=== PATIENT | female | born 2000 | race Caucasian/White ===

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

== ENCOUNTER 2020-10-18 19:22 | Day surgery (SDCO) | payer OTHER ==
[~2020-10-18 19:22] MED LIST: AMOXICILLIN500 MG PO; MACROBID100 MG PO; NAPROXEN500 MG PO; pre natal vit
== END 2020-10-19 00:40 | disposition home or self-care (01) ==
LOC: FOB 19:22
PROVIDERS: ADMIT Obstetrics & Gynecology
DX: O47.1 False labor at or after 37 completed weeks of gestation (principal); O99.013 Anemia complicating pregnancy, third trimester; D64.9 Anemia, unspecified; Z3A.37 37 weeks gestation of pregnancy; Z79.899 Other long term (current) drug therapy
CPT/HCPCS: 80305; 81001; G0378; J7120

== ENCOUNTER 2020-10-30 19:59 | Inpatient (IN) | payer OTHER ==
[2020-10-30 21:04] LABS: HCT 34.8 % (37.0-47.0); HGB 11.3 g/dl (12.5-16.0); MCH 27.4 pg (25.0-31.0); MCHC 32.5 g/dL (32.0-36.0); MCV 84.5 fL (78.0-100.0); MPV 10.6 fL (6.0-9.5); RBC 4.12 M/uL (4.20-5.40); RDW 21.5 % (11.5-14.0); WBC 8.2 K/uL (4.0-10.5)
[2020-10-30 21:14] LABS: BILIRUBIN NEGATIVE (NEGATIVE); BLOOD NEGATIVE Ery/uL (NEGATIVE); CLARITY CLEAR (CLEAR); COLOR YELLOW (YELLOW); GLUCOSE (U) NORMAL (NORMAL); LEUKOCYTES 3+ Leu/uL (NEGATIVE); NITRITE NEGATIVE (NEGATIVE); PROTEIN NEGATIVE (NEGATIVE); SPECIFIC GRAVITY 1.015 (1.001-1.030); UROBILINOGEN 0.2 mg/dL (0.2-1.0)
[2020-10-30 21:25] LABS: BACTERIA 2+; YEAST PRESENT
[2020-10-30 21:30] LABS: AMPHETAMINES NEGATIVE (NEGATIVE); BARBITURATES NEGATIVE (NEGATIVE); ECSTASY (MDMA) NEGATIVE (NEGATIVE); MARIJUANA (THC) NEGATIVE (NEGATIVE); METHADONE NEGATIVE (NEGATIVE); OPIATES NEGATIVE (NEGATIVE)
[2020-10-30 21:31] LABS: OXYCODONE NEGATIVE (NEGATIVE)
[2020-11-01 05:54] LABS: HCT 33.7 % (37.0-47.0); HGB 10.8 g/dl (12.5-16.0); MCH 27.6 pg (25.0-31.0); MPV 10.3 fL (6.0-9.5); RBC 3.92 M/uL (4.20-5.40); RDW 21.4 % (11.5-14.0); WBC 10.2 K/uL (4.0-10.5)
== END 2020-11-02 12:30 | disposition home or self-care (01) | DRG 806 ==
LOC: FOD 19:59 → FOB 20:04 → FOD 20:51 → FOB 20:52
PROVIDERS: ADMIT Obstetrics & Gynecology
PROC: 10E0XZZ Delivery of Products of Conception, External Approach (ICD-10-PCS; principal; 2020-10-31)
PROC: 3E0P7VZ Introduction of Hormone into Female Reproductive, Via Natural or Artificial Opening (ICD-10-PCS; 2020-10-31)
DX: O99.02 Anemia complicating childbirth (principal); O98.22 Gonorrhea complicating childbirth; Z37.0 Single live birth; D62 Acute posthemorrhagic anemia; O26.891 Other specified pregnancy related conditions, first trimester; O69.81X0 Labor and delivery complicated by cord around neck, without compression, not applicable or unspecified; R12 Heartburn; Z20.822 Contact with and (suspected) exposure to COVID-19; Z3A.39 39 weeks gestation of pregnancy
CPT/HCPCS: 36415; 80305; 81001; J2540; J7120; U0002

== ENCOUNTER 2021-03-30 11:15 | Emergency (ER) | payer OTHER ==
[2021-03-30 12:58] LABS: BASOPHIL 0.4 % (0-2); EOSINOPHIL 0.8 % (0-5); HCT 44.8 % (37.0-47.0); HGB 14.6 g/dl (12.5-16.0); LYMPHOCYTE 25.5 % (15-48); MCHC 32.6 g/dL (32.0-36.0); MCV 88.9 fL (78.0-100.0); MONOCYTE 5.5 % (0-12); MPV 10.7 fL (6.0-9.5); NEUTROPHIL 67.6 % (41-80); NRBC 0; PLT 321 K/uL (150-400); RBC 5.04 M/uL (4.20-5.40); RDW 12.4 % (11.5-14.0); WBC 8.5 K/uL (4.0-10.5)
[2021-03-30 13:02] LABS: BUN/CREAT RATIO (CALC) 14.5 RATIO; CREATININE 0.62 mg/dL (0.51-0.95); POTASSIUM 4.1 mmol/L (3.5-5.1)
[2021-03-30 14:17] LABS: BILIRUBIN NEGATIVE (NEGATIVE); BLOOD 3+ Ery/uL (NEGATIVE); GLUCOSE (U) NORMAL (NORMAL); LEUKOCYTES NEGATIVE Leu/uL (NEGATIVE); NITRITE NEGATIVE (NEGATIVE); PROTEIN 2+ mg/dL (NEGATIVE); SPECIFIC GRAVITY >=1.030 (1.001-1.030); UROBILINOGEN 0.2 mg/dL (0.2-1.0)
[2021-03-30 14:20] LABS: CLARITY CLOUDY (CLEAR); COLOR RED (YELLOW)
[2021-03-30 14:23] LABS: URINARY RBC TNTC
== END 2021-03-30 14:53 | disposition home or self-care (01) ==
LOC: FER 11:15
PROVIDERS: Nurse Practitioner Family
DX: O03.9 Complete or unspecified spontaneous abortion without complication (principal)
CPT/HCPCS: 36415; 80048; 81001; 84702; 85025

== ENCOUNTER 2021-09-04 15:55 | Emergency (ER) | payer OTHER ==
[2021-09-04 17:17] LABS: BASOPHIL 0.3 % (0-2); HCT 46.6 % (37.0-47.0); HGB 15.4 g/dl (12.5-16.0); LYMPHOCYTE 27.7 % (15-48); MCH 28.5 pg (25.0-31.0); MCV 86.3 fL (78.0-100.0); MONOCYTE 5.7 % (0-12); MPV 10.9 fL (6.0-9.5); NEUTROPHIL 64.8 % (41-80); NRBC 0; PLT 298 K/uL (150-400); RDW 13.3 % (11.5-14.0); WBC 10.6 K/uL (4.0-10.5)
[2021-09-04 17:28] LABS: BUN/CREAT RATIO (CALC) 10.9 RATIO; CREATININE 0.55 mg/dL (0.51-0.95); POTASSIUM 3.7 mmol/L (3.5-5.1)
[2021-09-04 17:33] LABS: BILIRUBIN NEGATIVE (NEGATIVE); BLOOD 1+ Ery/uL (NEGATIVE); GLUCOSE (U) NORMAL (NORMAL); LEUKOCYTES 3+ Leu/uL (NEGATIVE); NITRITE NEGATIVE (NEGATIVE); PROTEIN TRACE (LOW) mg/dL (NEGATIVE); UROBILINOGEN 0.2 mg/dL (0.2-1.0)
[2021-09-04 17:35] LABS: CLARITY HAZY (CLEAR); COLOR STRAW (YELLOW)
[2021-09-04 17:55] LABS: BACTERIA 2+; SQUAMOUS EPITHELIAL CELLS 20-50; URINARY WBC 20-50
[2021-09-04 17:58] LABS: MUCOUS TRACE
[2021-09-04] MEDS ORDERED: MACROBID100 MG PO (20:35)
[2021-09-04] MEDS ORDERED: METRONIDAZOLE500 MG PO (20:35)
[2021-09-06 22:06] LABS: CHLAMYDIA TRACHOMATIS, NAA Negative (Negative); NEISSERIA GONORRHOEAE, NAA Negative (Negative)
== END 2021-09-04 20:42 | disposition home or self-care (01) ==
LOC: FER 15:55
PROVIDERS: Nurse Practitioner Family
DX: O20.0 Threatened abortion (principal); O23.41 Unspecified infection of urinary tract in pregnancy, first trimester; O98.311 Other infections with a predominantly sexual mode of transmission complicating pregnancy, first trimester; A59.9 Trichomoniasis, unspecified; Z3A.08 8 weeks gestation of pregnancy
CPT/HCPCS: 36415; 76801; 80048; 81001; 84702; 85025; 87491; 87591

== ENCOUNTER → 2021-09-14 | Day surgery (SDC) | payer OTHER ==
[~2021-09-14] VITALS: Ht 154.9 cm; Wt 76.7 kg
[~2021-09-14] MED LIST changes: +IBUPROFEN600 MG PO; +METRONIDAZOLE500 MG PO
[2021-09-14 08:37] LABS: HCT 38.8 % (37.0-47.0); HGB 13.1 g/dl (12.5-16.0); MCHC 33.8 g/dL (32.0-36.0); MCV 85.8 fL (78.0-100.0); MPV 10.4 fL (6.0-9.5); RBC 4.52 M/uL (4.20-5.40); RDW 13.7 % (11.5-14.0); WBC 8.1 K/uL (4.0-10.5)
== END | disposition home or self-care (01) ==
LOC: FAS 07:50
PROVIDERS: Obstetrics & Gynecology
DX: O03.9 Complete or unspecified spontaneous abortion without complication (principal); D64.9 Anemia, unspecified; Z87.891 Personal history of nicotine dependence
CPT/HCPCS: 36415; 86850; 86900; 86901; J1100; J1170; J1885; J2210; J2250; J2405; J2704; J3010; J7050

== ENCOUNTER 2022-01-29 10:55 | Emergency (ER) | payer OTHER ==
[2022-01-29 11:53] LABS: CORONAVIRUS 2019 SARS-COV-2 NEGATIVE (NEGATIVE); INFLUENZA A NAA NEGATIVE (NEGATIVE)
[2022-01-29] MEDS ORDERED: MEDROL 4MG DOSEP4 MG PO (12:54)
== END 2022-01-29 13:29 | disposition home or self-care (01) ==
LOC: FER 10:55
PROVIDERS: Emergency Medicine
DX: J20.8 Acute bronchitis due to other specified organisms (principal); F17.210 Nicotine dependence, cigarettes, uncomplicated; Z20.822 Contact with and (suspected) exposure to COVID-19; Z28.310 Unvaccinated for COVID-19
CPT/HCPCS: 71045; 93005; U0002

== ENCOUNTER 2022-02-19 11:38 | Emergency (ER) | payer OTHER ==
[~2022-02-19 11:38] MED LIST changes: +MEDROL 4MG DOSEP4 MG PO
== END 2022-02-19 13:16 | disposition home or self-care (01) ==
LOC: FER 11:38
DX: S93.602A Unspecified sprain of left foot, initial encounter (principal); Z28.310 Unvaccinated for COVID-19; W10.9XXA Fall (on) (from) unspecified stairs and steps, initial encounter; Y92.009 Unspecified place in unspecified non-institutional (private) residence as the place of occurrence of the external cause
CPT/HCPCS: 73610; 73630